=== PATIENT | male | born 1955 | race Caucasian/White ===

== ENCOUNTER 2019-03-24 11:26 | Emergency (ER) | payer BC, OTHER ==
--- NOTE | 2019-03-24 11:37 | ERPHSYRPT ---
- History of Present Illness Time Seen by Provider: 03/24/19 11:36 Source: patient, family Exam Limitations: no limitations Physician History: 63 y/o white male was bailing hay when metal arm flipped up and hit his forehead. no loc. tetanus not utd. no anticoag tx. Timing/Duration: today Quality: painful Severity: mild Location: other (forhead) Associated Symptoms: denies symptoms Allergies/Adverse Reactions: No Known Drug Allergies Allergy (Verified 03/24/19 11:47) Home Medications: Aspirin EC 325 mg [Ecotrin 325 MG] 325 mg PO DAILY 05/07/16 [History] Meclizine HCl 25 mg [Antivert 25 mg] 25 mg PO DAILY PRN 05/07/16 [History] Multivitamin [Multivitamins] 1 each PO DAILY 05/07/16 [History] Vitamin E 400 Units [Vitamin E 400 UNIT SOFTGEL] 400 unit PO DAILY [History] Amlodipine Besylate 5 mg [Norvasc 5 mg] 5 mg PO DAILY 03/24/19 [History] - Review of Systems Constitutional: No Symptoms Eyes: No Symptoms Ears, Nose, & Throat: No Symptoms Respiratory: No Symptoms Cardiac: No Symptoms Abdominal/Gastrointestinal: No Symptoms Genitourinary Symptoms: No Symptoms Musculoskeletal: No Symptoms Skin: Other (forehead lac) Neurological: No Symptoms Psychological: No Symptoms Endocrine: No Symptoms Hematologic/Lymphatic: No Symptoms Immunological/Allergic: No Symptoms All Other Systems: Reviewed and Negative - Past Medical History Pertinent Past Medical History: Yes Neurological History: No Pertinent History ENT History: No Pertinent History Cardiac History: Hypertension Respiratory History: No Pertinent History Endocrine Medical History: No Pertinent History Musculoskeletal History: No Pertinent History GI Medical History: No Pertinent History History: No Pertinent History Psycho-Social History: No Pertinent History Male Reproductive Disorders: No Pertinent History Other Medical History: left hear recent total hearing loss - Past Surgical History Past Surgical History: No Neuro Surgical History: No Pertinent History Cardiac: No Pertinent History Respiratory: No Pertinent History Gastrointestinal: No Pertinent History Genitourinary: No Pertinent History Musculoskeletal: No Pertinent History Male Surgical History: No Pertinent History Other Surgical History: no past surgeries, past colonoscopy - Social History Smoking Status: Never smoker Exposure to second hand smoke: No Drug Use: none - Nursing Vital Signs Nursing Vital Signs: Initial Vital Signs Temperature 97.7 F 03/24/19 11:36 Pulse Rate 72 03/24/19 11:36 Blood Pressure 159/88 03/24/19 11:36 O2 Sat by Pulse Oximetry 96 03/24/19 11:36 Pain Scale Pain Intensity 1 - Physical Exam General Appearance: no apparent distress, alert Eye Exam: PERRL/EOMI Ears, Nose, Throat Exam: normal ENT inspection, moist mucous membranes Neck Exam: normal inspection, non-tender, supple, full range of motion Respiratory Exam: No chest tenderness Gastrointestinal/Abdomen Exam: soft, No tenderness Rectal Exam: not done Back Exam: normal inspection, normal range of motion, No CVA tenderness, No vertebral tenderness Extremity Exam: normal inspection, normal range of motion, pelvis stable Neurologic Exam: alert, oriented x 3, cooperative, production editor II-XII nml as tested Skin Exam: laceration (3cm v shaped lac. no fb. no bleeding. mid forehead), other Lymphatic Exam: No adenopathy SpO2 Interpretation: normal O2 Delivery: Room Air Procedures - Laceration/Wound Repair Head Wound Location: forehead Wound Length (cm): 3.5 Wound's Depth, Shape: superficial Wound Explored: no foreign body noted Irrigated: Yes Hibiclens Prep: Yes Anesthesia: 1% Lidocaine (2) Volume Anesthetic (ccs): 2 Wound Repaired With: sutures Suture Size/Type: 5-0, nylon Number of Sutures: 3 Layer Closure?: No Sterile Dressing Applied?: Yes Progress: 03/24/19 12:22 bacitracin ointment and dressing applied by rn. no complications - Course Nursing assessment & vital signs reviewed: Yes Ordered Tests: Medication Summary Discontinued Medications Generic Name Dose Route Start Last Admin Trade Name Freq PRN Reason Stop Dose Admin Bacitracin Zinc 0.9 gm 03/24/19 11:47 Baciguent Packet TP 03/24/19 11:48 STAT ONE Diphtheria/Tetanus/Acell Pertussis 0.5 ml 03/24/19 11:48 Adacel Vial IM 03/24/19 11:49 .ONCE ONE Lidocaine HCl 5 ml 03/24/19 11:48 Xylocaine 1% Hcl 20 Ml Mdv IJ 03/24/19 11:49 STAT ONE - Progress Progress: improved Counseled pt/family regarding: diagnosis, need for follow-up - Departure Departure Disposition: Home Clinical Impression: Forehead laceration Condition: Stable Critical Care Time: No Referrals: PIERRE STEWART [Primary Care Provider] - Additional Instructions: keep dry for 24 hours. after 24 hours may wash daily and apply antibiotic ointment and a nonstick dressing. use tylenol and ibuprofen for pain. suture removal in 6 to 7 days
[2019-03-24 11:46] VITALS: BP 159/88; PULSE 72; O2SAT 96
[2019-03-24] MEDS ORDERED: BACIGUENT PACKET TP ONE (11:47)
[2019-03-24] MEDS ORDERED: XYLOCAINE 1% HCL 20 ML MDV IJ ONE (11:48)
[2019-03-24] MEDS ORDERED: Adacel Vial IM ONE ×2 (11:48→12:21)
[2019-03-24] MEDS ORDERED: BACIGUENT PACKET ONE (12:21)
[2019-03-24] MEDS ORDERED: XYLOCAINE 1% HCL 20 ML MDV ONE (12:21)
== END 2019-03-24 12:30 | disposition home or self-care (01) ==
LOC: ED 11:26
DX: S01.81XA Laceration without foreign body of other part of head, initial encounter (principal); W31.89XA Contact with other specified machinery, initial encounter; Y93.89 Activity, other specified; Y92.89 Other specified places as the place of occurrence of the external cause; Y99.0 Civilian activity done for income or pay; G50.1 Atypical facial pain; I10 Essential (primary) hypertension
CPT/HCPCS: 12013; 90471; 90715; 96372; 99283; A9270-GY